=== PATIENT | female | born 1965 | race Hispanic/Latino ===

== ENCOUNTER 2016-11-14 09:38 | Day surgery (SDC) | payer OTHER ==
[2016-11-14] VITALS (11 sets, daily range): BP systolic 116–144; BP diastolic 61–82; PULSE 66–82; RESP 8–16; O2SAT 93–100
[~2016-11-14] VITALS: Ht 160 cm; Wt 72.5 kg
[2016-11-14] MEDS: Lactated Ringer's 1,000 ML IV SCH ×4 (05:33→14:03)
--- NOTE | 2016-11-14 06:44 | PCM.HPANE ---
Patient Data Surgeon Admitting Provider: Attending Provider:Jeyson King MD Primary Care Physician:Anila Brown MD Other Provider:Eda Cardosoingham Anesthesia Reason for Visit Right Breast Cancer Ht/WT & BMI Height (Feet): 5 Height (Inches): 2 Weight (Kilograms): 75.75 Body Mass Index 30.00 Allergies Coded Allergies: acetaminophen (Verified Allergy, Mild, RASH, 11/12/16) Medications Reported Medications Cholecalciferol (Vitamin D3) (Vitamin D3)1,000 Unit Tab.chew1,000 Unit PO DAILY 11/12/16 Alprazolam (Xanax)0.25 Mg Tablet0.25 Mg PO DIRECTED PRN For Anxiety Ref 0 10/10/16 Omeprazole 20 Mg Capsule.dr20 Mg PO DAILY Ref 0 10/10/16 Naproxen 250 Mg Fxrxeh288 Mg PO DIRECTED PRN For Pain Ref 0 10/10/16 History History of ENT Problems?: No Hx of Heart Problems?: No Hx of Respiratory Problem?: No Hx Neurologic Problems?: Yes Neurological History: Positive for:: Headaches Hx of GI Problems?: Yes Gastrointestinal History: Positive for:: Gastroesphageal Reflux Other GI Pertinent History: CONSTIPATION Female Hx: Positive for:: Pelvic Inflammatory (ATROPIHIC VAGINITIS) Problems with Breasts? Skin History: Denies:: History Skin Disorders? Pressure Ulcers Hx Musculoskeletal Problems?: Yes Musculoskeletal History: Positive for:: Back Injury (NECK STRAIN, LOW BACK STRAIN, MUSCLE SPASMS IN NECK) Musculoskeletal Trauma (R ROTATOR CUFF TEAR, PLANTAR FASCIITIS OF R FOOT, R RIB CONTUSION) Hx of Psycho/Social Problems?: No Hx Surgeries?: Yes (TUBAL) Hx Any Other Health Problems?: Yes Other History: Positive for:: Cancer (RIGHT BREAST) Hx Alcohol Use: No Stop/Bang S-Snoring: Do You Snore Loudly: No T-Tired: feel tired, fatigued: No O-Obsered: Observed not breath: No P-Blood Pressure: treated: No B- Body Mass Index > 35 kg/m2: No A- Age over 50: Yes N- Neck Large Circumference: No G- Gender Male: No MICKEY Total Score: 1 MICKEY Risk Assessment: Low Risk, <3 Yes Risk Assessment Category Category 1A: Patient has history of documented sleep apnea, and HAS NOT received any narcotic, sedative or anesthesia administration during this stay. Category 1B: Patient has history of documented sleep apnea, and HAS received any narcotic , sedative or anesthesia administration during this stay Category 2: Patient has SUSPECTED Obstructive Sleep Apnea, and HAS received any narcotic , sedative or anesthesia administration during this stay. Category 3: Patient has SUSPECTED Obstructive Sleep Apnea and HAS NOT received narcotic, sedative or anesthesia administration during this stay. Category 4: Outpatient in Procedural Areas with known sleep apnea or who screen positive for High Risk via the STOP/BANG questionnaire. Exam Exam General Appearance: Alert, Oriented X3, Cooperative, No Acute Distress HEENT/AIRWAY: MP 2 Lungs: Clear to Auscultation, Normal Air Movement Heart: Exam Unremarkable, Regular Rate/Rhythm, No Murmurs/Rubs/Gallops Meds/Labs/Diagnostics Admission Meds Current Medications Lactated Ringer's (Lr) 1,000 ml @ 120 mls/hr Q8H20M IV Last administered on t 05:33; Start 11/14/16 at 05:00; Stop 11/14/16 at 13:19 Plan Impression Patient chart reviewed, patient interviewed and anesthestic plan with risks, benefits, and alternatives discussed, and informed consent obtained. ASA Physical Status: ASA2 Mod Systemic Disease Anesthetic Plan: GA Bene/Risks/Altern/Consents: Yes HP Complete Prior to Induction: Yes Devante Abarca MD Nov 14, 2016 06:44
[~2016-11-14 09:38] MED LIST: ALPR0.25 PO; CHOL10008 PO; CeFAZolin Inj 2 GM in IV Premix 1 EACH IV SCH; NAPR250T PO; OMEP20CA11 PO
[2016-11-14] MEDS ORDERED: Propofol 10,000 mCg/mL 20 mL Inj ONE (09:39)
[2016-11-14] MEDS ORDERED: Ondansetron 2 mg/mL 2 mL Inj ONE (09:39)
[2016-11-14] MEDS ORDERED: Dexamethasone 4 mg/mL Inj ONE (09:39)
[2016-11-14] MEDS ORDERED: fentaNYL-PF 50 mCg/mL 2 mL Inj ONE (09:39)
[2016-11-14] MEDS ORDERED: Bupivacaine-MPF 0.5% W/EPI 30 mL Inj INFILTRATE ONE (12:01)
[2016-11-14] MEDS ORDERED: Lactated Ringer's 500 ML IV PRN (12:06)
[2016-11-14] MEDS ORDERED: Lactated Ringer's 1,000 ML IV SCH (12:06)
[2016-11-14] MEDS ORDERED: Dexamethasone 4 mg/mL Inj IVPUSH PRN (12:10)
[2016-11-14] MEDS ORDERED: MetoCLOpramide 5 mg/mL 2 mL Inj IVPUSH PRN (12:10)
[2016-11-14] MEDS ORDERED: EPHEDrine Sulfate 50 mg/mL Inj IVPUSH PRN (12:10)
[2016-11-14] MEDS ORDERED: Ondansetron 2 mg/mL 2 mL Inj IVPUSH PRN (12:10)
[2016-11-14] MEDS ORDERED: Phenylephrine 10,000 mCg/mL Inj IVPUSH PRN (12:10)
[2016-11-14] MEDS ORDERED: Labetalol 5 mg/mL 4 mL Inj IV PRN (12:10)
[2016-11-14] MEDS ORDERED: hydrALAZINE 20 mg/mL Inj IVPUSH PRN (12:10)
[2016-11-14] MEDS ORDERED: Atropine 0.4 mg/mL Inj IVPUSH PRN (12:10)
--- NOTE | 2016-11-14 12:41 | PCM.DISURG ---
Surgical Discharge Instruction Date of Service Nov 14, 2016 Dates of Hospitalization Date of Hospital Admission Providers Admitting Physician: Primary Care Physician: Anila Brown MD Attending Physician: Jeyson King MD Discharge Diagnosis Discharge Diagnosis Right breast cancer Diet Discharge Diet: No restrictions Activity Discharge Activity-General: Activity as pain allows Dressing and Incisional Care Dressing Instructions: Dermabond will peel off gradually Hygiene: May shower Follow Up Plan Follow Up Plan In the general surgery [place] postoperative clinic in 2 weeks. You will receive a call from Dr. King when pathology results are available. Call your provider for: Fever (over 101.5), Discharge @ incision, pus discharge Jeyson King MD Nov 14, 2016 12:41
--- NOTE | 2016-11-14 12:49 | PCM.SURGOP ---
Surgical Operative Report Date of Service: Nov 14, 2016 Pre Operative Diagnosis Right breast cancer Post Operative Diagnosis Same Procedure: Wire localized right partial mastectomy, right axillary sentinel lymph node biopsy Surgeon and Interpreter And Translator: Surgeon: Jeyson King MD Assistants: Karely Cox PA-C Indication for Procedure 51-year-old woman who was found on screening mammogram to have a new 1.1 cm mass in the right breast 8 o'clock position. Ultrasound-guided biopsy was performed, which demonstrated invasive ductal carcinoma, weakly ER positive, FL negative, [id number]. 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 Breast MRI showed a bilobed lesion, with the larger area measuring 8 x 7 x 5 mm, the smaller area measuring 6 x 6 x 3 mm. There was no lymphadenopathy. After discussion of risks and benefits, she agreed to proceed with wire localized right partial mastectomy, right axillary sentinel lymph node biopsy. Findings: The radiotracer signal was somewhat weak, so methylene blue was used. There was a single sentinel node, which was blue, and had a discrete radiotracer signal, with an ex vivo gamma count of 17, compared to a background count of 1. Procedure Details Preoperatively, the patient underwent wire localization in the breast [facility]. She then underwent radiotracer injection by nuclear medicine. She was brought to the operating room where she underwent smooth induction of general anesthesia with an LMA. Assessment of the right axilla revealed a weak radiotracer signal, so methylene blue was injected. A total of 2 mL was injected in 0.5 mm aliquots into the subdermal tissue around the areolar border circumferentially. The breast was massaged for several minutes. The right breast was prepped and draped in wide sterile fashion. A procedural pause was performed according to the SCOAP checklist, and all were found to be in agreement. A transverse incision was made in the lower outer quadrant of the right breast. Skin flaps were raised superiorly and inferiorly. The wire, which was coming in from lateral to medial, was delivered into the wound. Using the wire as a guide, circumferential dissection was carried out with electrocautery. Right breast tissue was dissected free, and the wire was not encountered during dissection, although the tip was somewhat close to the medial aspect of the cavity. The tissue was oriented with suture, labeled as right breast tissue, and a specimen radiograph was obtained. This confirmed that the mammographic lesion had been successfully localized the clip. Meanwhile, a separate medial margin was obtained with electrocautery, oriented with suture, and sent for permanent pathology. The cavity was marked with hemoclips circumferentially. The breast parenchyma was closed using an interrupted 3-0 Vicryl suture. A curvilinear incision was made at the inferior border of the hairbearing skin of the right axilla. Dissection was carried down with electrocautery through the subcutaneous tissue until the axillary fascia was incised. Exploration of the right axilla using the gamma probe as a guide revealed an area of discrete radiotracer activity, although it was somewhat weak. Dissection down onto this area revealed blue lymphatic channels going to a small blue lymph node. This was dissected free using hemoclips and electrocautery. Ex vivo, it had radiotracer count of 17. The background radiotracer count in the right axilla was 1. That was sent for permanent pathology, labeled as right axillary sentinel lymph node. There were no other pathologic nodes by palpation, and no other blue channels could be appreciated. The axillary fascia was closed with a 3-0 Vicryl suture. Both skin incisions were closed using running 4-0 Vicryl subcuticular suture. Dermabond was applied to both incisions as a dressing. At the end of the case all needle and sponge counts were correct 2. The patient was awakened from anesthesia without difficulty, and taken to the recovery room in satisfactory condition, having tolerated the procedure well. Complications There were no periprocedural complications identified. Surgical Specimen Removed: Yes Specimen sent to Pathology: Yes Surgical Specimen description: Right breast tissue. Medial margin. Right axillary sentinel lymph node. Anesthetic Plan: GA Grafts, Implants: None Output, Estimated Blood Loss: 20 Blood Administration during forbes: No Drains: None Catheters: None copies to: Jonah Johnson MD; Carlos Perez MD; Anila Brown MD, Joshua D MD Nov 14, 2016 12:49
[2016-11-14] MEDS: fentaNYL-PF 50 mCg/mL 2 mL Inj IVPUSH PRN ×2 (13:10→13:17)
[2016-11-14] MEDS: HYDROmorphone 1 mg/mL Inj IVPUSH PRN ×2 (13:10→13:16)
--- NOTE | 2016-11-14 13:39 | PCM.ANEP1 ---
Post Anesthesia Phase 1 PACU Phase 1 Assessment Date of Service: Nov 14, 2016 Vital Signs Vital Signs Date Time Temp Pulse Resp B/P Pulse Ox O2 Delivery O2 Flow Rate FiO2 11/14/16 13:29 72 8 125/72 94 Room Air 11/14/16 13:15 36.2 75 12 131/75 98 Room Air 11/14/16 13:10 79 14 143/78 96 Room Air 11/14/16 13:05 77 8 144/77 96 Room Air 11/14/16 13:00 82 10 144/76 99 Simple Mask 8 11/14/16 12:55 36.2 82 10 139/77 100 Simple Mask 8 11/14/16 10:02 36.0 69 16 131/82 97 Room Air Anesthetic Administered: GA Level of Alertness: Awake, talking SMITH's with Equal Strength: Yes Pain: No Nausea or Vomiting: No Oxygen Delivery: Simple Mask Lungs: Clear to Auscultation, Normal Air Movement Devante Abarca MD Nov 14, 2016 13:39
--- NOTE | 2016-11-14 13:40 | PCM.ANEP2 ---
Post Anesthesia Evaluation ASA/CMS Post Anesthesia VS in Patient's Normal Range?: Yes Resp Stable; Airway Patent?: Yes CV Function & Hydration Stable: Yes Mental Status Recovered?: Yes Pain control Satisfactory?: Yes N/V Control Satisfactory?: Yes Devante Abarca MD Nov 14, 2016 13:40
--- NOTE | 2016-11-14 16:15 | DRSVH ---
PROCEDURE: NM SENTINEL NODE INJECTION ONLY, RIGHT BREAST RADIOPHARMACEUTICAL: 0.5 mCi Millipore filtered Tc-99m sulfur colloid. INDICATIONS: RIGHT BREAST CANCER PROCEDURE: The indications, alternatives, benefits, risks, and complications of the procedure were explained to the patient. Written informed consent was obtained and placed in the chart. The area around the nip ple was prepped and draped in a sterile fashion. Tc-99m sulfur colloid was injected in the outer edg e of the areola in the right breast. No image was obtained. IMPRESSION: Administration of radiotracer into the right breast periareolar region for intra-operati ve sentinel lymph node localization. Dictated by: Kamaljit Juarez M.D. on 11/14/2016 at 16:14 Approved by: Kamaljit Juarez M.D. on 11/14/2016 at 16:14
--- NOTE | 2016-11-17 07:40 | DRSVH ---
SPECIMEN RIGHT BREAST: 11/14/2016 CLINICAL: Breast specimen. Correlation is made to exams dated: 11/14/2016 localization, 11/14/2016 mammogram - [facility] , 10/24/2016 breast MRI - [facility], and 10/02/2016 [facility] specimen was imaged for the mass located in the right breast at 8 o'clock in the retroare olar region. IMPRESSION: SPECIMEN The imaged specimen includes the lesion, a biopsy clip, and the distal portion of the biopsy wire. This exam was interpreted at Station ID: [id number]. Carlos armendariz/:11/14/2016 14:41:55 copy to: RENETTA GARCIA Additional referring physicians: BRIANDA YOON, RENETTA CHINCHILLA
--- NOTE | 2016-11-19 09:33 | PATH ---
SURGICAL PATHOLOGY Attending Physician:Anupama Gallagher CASE STATUS: Signed Out PATIENT NAME: TADEO BERGERON PID: [id number] : 1965 DATE COLLECTED:11/14/2016 00:00 SPECIMEN: 1: Breast mass, oriented 2: Breast Margin 3: [place] Lymph Node CLINICAL HISTORY: RIGHT BREAST CANCER 1. RIGHT BREAST TISSUE-SHORT STITCH SUPERIOR LONG STITCH LATERAL 2. RIGHT BREAST MEDIAL MARGIN SHORT STITCH IS SUPERIOR LONG STITCH IS ANTERIOR 3. RIGHT AXILLARY SENTINEL LYMPH NODE FINAL DIAGNOSIS: 1. Right Breast Wire Localization Excisional Specimen: Invasive carcinoma of the breast (see CAP Case summary below). Procedure: Wire localization excision. Lymph node sampling sentinel lymph node. Specimen laterality: Right. Tumor site: Upper inner quadrant. Tumor size: 0.6 cm (invasive component). Histologic type: Infiltrating ductal carcinoma not otherwise specified. Histologic grade: [place] histologic score: 9/9. Glandular score: 3/3, nuclear pleomorphism: 3/3, mitotic rate: 3/3, overall grade: 3/3. Tumor focality: Three separate foci. Ductal carcinoma in situ: Not identified. Margins: Invasive carcinoma Superior: 0.3 cm. Inferior: 0.5 cm. Additional margins: Greater than 1 cm. Lymph nodes: Total number of lymph nodes examined: 1 Number of sentinel lymph nodes: 1 Lymph node involvement: Negative for tumor. Method of Evaluation of [place] Lymph Node: Multiple serial sections. Lymphvascular invasion: Positive. These foci are present 0.3 cm from the inferior margin and 0.3 cm from the lateral margin. Pathologic stage: Primary tumor: pT1b Lymph node: pN0(sn). Ancillary studies (biomarkers performed on previous biopsy, [id number]): Estrogen receptor: Weakly positive. Progesterone receptor: Negative. HER-2/tricia: Negative. (all by immunohistochemistry). ICD10 C50.21 GROSS DESCRIPTION: The specimens are received in formalin, labeled with the patient's name, and sublabeled as the following: (1) right breast tissue; (2) medial margin, ss= superior, long st= anterior, TIF 1215; (3) Rt. axillary [place] lymph node, @ 1230, TIF 1231. (1) The specimen consists of a piece of breast tissue (4.8 cm AP, 2.2 cm SI, 6.0 cm ML) with no overlying skin. The specimen is oriented with 2 black sutures (short-superior, long-lateral). A localization wire is present. The specimen is serially sectioned ML into 15 slices with the medial and lateral resection margins as slices #1 and #15 respectively. The breast tissue is fatty and contains a diamond-white and yellow solid firm irregular mass (1.7 x 1.4 x 1.1 cm) and a martins-white solid firm well-circumscribed round nodule (0.5 cm). The mass is within slices #8-#11 and is 1.0 cm from the anterior, 2.2 cm from the posterior, 0.2 cm from the superior, 0.5 cm from the inferior, 2.8 cm on the medial, and 1.4 cm from the lateral resection margins. The nodule is within slices #12-#14 and is 0.5 cm from the mass, 1.5 cm from the anterior, 1.5 cm from the posterior, 1.1 cm from the superior, 0.6 cm from the inferior, 5.1 cm from the medial, and 0.4 cm from the lateral resection margins. Slices #1-#7 contain focally fibrous and irregular firm areas. No other nodules, masses or lesions are identified. Ink code: purple-anterior; yellow-posterior; black-superior; large-inferior; green-medial; blue-lateral. Section code: (1A) medial resection margin, perpendicularly sectioned, entirely submitted; (1B-1C) slice #2, bisected and submitted AP, entirely submitted; (1D-1E) slice #3, bisected and submitted AP, entirely submitted; (1F-1G) slice #4, bisected and submitted AP, entirely submitted; (1H-1I) slice #5, bisected and submitted AP, entirely submitted; (1J-1K) slice #6, bisected and submitted AP, entirely submitted; (1L-1M) slice #7, bisected and submitted AP, entirely submitted; (1N) slice #8, bisected AP, anterior half submitted; (1O) slice #9, bisected AP, anterior half submitted; (1P-1Q) slice #10, bisected and submitted AP, entirely submitted; (1R) slice #11, bisected AP, anterior half submitted; (1S) slice #12, trisected AP, middle third submitted; (1T) slice #13, bisected AP, anterior half submitted; (1U) slice #14, bisected AP, anterior half submitted; (1V-1W) lateral resection margin, perpendicularly sectioned, entirely submitted. Note: The mass and nodule are entirely submitted. (2) The specimen consists of a piece of breast tissue (3.5 cm AP, 3.6 cm SI, 0.7 cm ML) with no overlying skin. The specimen is oriented with 2 black sutures (short-superior, long-anterior). No localization wire is present. The breast tissue is fatty and secretes milky fluid upon sectioning. No nodules, masses or lesions are identified. Please note that the following ink code is not per the usual code. Inked code: purple-anterior; orange-posterior; black-superior; yellow-inferior; blue-medial; green-lateral. Section code: (2A) superior resection margin, perpendicular resection; (2B-2E) breast tissue, serially sectioned and submitted SI; (2F) inferior resection margin, perpendicularly sectioned. Specimen entirely submitted. (3) The specimen consists of a blue stained lymph node (1.5 x 1.1 x 0.2 cm). Section code: (3A) one lymph node, serially sectioned. Specimen entirely submitted. Note: Approximate total fixation some in formalin for all specimens-57 hours and 30 minutes calculated using a collection date of November 14, 2016 with times in fixative of [id number]. 11/15/16 JM MICRO DESCRIPTION: Sections from part 1 are of an excisional specimen from the right breast. The grossly described mass is a poorly-differentiated infiltrating ductal carcinoma of high grade ([place] grade 3/3). Nuclear grade is high, mitotic rate is high, and tubular differentiation is absent. Grossly the mass measured up to 1.7 cm in maximum dimension; however, the bulk of this is inflammatory reaction secondary to the previous biopsy. The actual mass measures 0.6 cm in maximum dimension. It is present 0.3 cm from the inked superior margin and 0.5 cm from the inked inferior margin. The preoperative MRI suggested this mass was bilobed; however, the gross examination indicates that there are actually two separate masses. The second is a well-demarcated nodular mass measuring 0.5 cm in maximum dimension. The second mass is histologically similar to the previously described tumor. This mass is 1 cm from the superior margin. All other margins are widely free of tumor. A third microscopic focus of invasive carcinoma is histologically identified. This measures less than 0.1 cm in maximum dimension and is not close to any inked margin. There are also two foci of vascular invasion. This is confirmed by immunohistochemistry in that the tumor cells are seen within spaces that are lined by endothelial cells and lymphatic cells (positive for CD31 and D2-40). These foci of vascular invasion are present 0.3 cm from the inferior margin and 0.3 cm from the lateral margin. Sections from part 2 are from the re-excision of the medial margin. There is no evidence of malignancy or significant atypia. Sections from part 3 are from a right axillary lymph nodes. Multiple serial sections are prepared and these are all negative for malignancy. ICD-9 CODES: CPT CODES: 1: 39045, 77107, 01845, 05456, 16564 2: 86481 3: 17996 PROCEDURE/ADDENDA: Addendum SPI Addendum Diagnosis Test: Oncotype DX breast recurrence score Recurrence Score Result: 57 ER Score: 5.3 Negative DC Score: <3.2 Negative HER2 Score: <7.6 Negative Addendum Comment Please see [employer] report [id number] for complete details. Electronically Signed Out Yesenia Morrow MD Electronically Signed Out Martin Villalobos MD [facility] Pathology [facility] [address], [place] [address] Technical component performed at [facility], [facility] [address], [place], [address]
[2016-12-11] MEDS ORDERED: OXYC5TAB72 PO (16:06)
[2017-01-07] MEDS ORDERED: PROC-4 PO (10:24)
[2017-01-07] MEDS ORDERED: IBUP-1827 PO (10:24)
[2017-01-07] MEDS ORDERED: DXM4T PO (10:24)
[2017-01-07] MEDS ORDERED: LORA5TAB8 PO (10:24)
[2017-01-07] MEDS ORDERED: ONDA8TAB7 PO (10:24)
[2017-01-07] MEDS ORDERED: LORA10CA PO (10:24)
[2017-01-27] MEDS ORDERED: DIPH25CA6 PO (12:30)
[2017-01-30] MEDS ORDERED: METH4TAB12 PO (10:15)
== END 2016-11-14 23:59 | disposition home or self-care (01) ==
LOC: SAS 09:38
PROVIDERS: ATTEND Student in an Organized Health Care Education/Training Program
DX: C50.911 Malignant neoplasm of unspecified site of right female breast (principal); Z17.0 Estrogen receptor positive status [ER+]; K21.9 Gastro-esophageal reflux disease without esophagitis; G43.909 Migraine, unspecified, not intractable, without status migrainosus
CPT/HCPCS: 19301; 38525; 38792; 76098; A9541; J0690; J1100; J1170; J2175; J2250; J2405; J7120

== ENCOUNTER 2016-12-25 11:10 | Day surgery (SDC) | payer OTHER ==
[2016-12-25] VITALS (8 sets, daily range): BP systolic 120–141; BP diastolic 80–88; PULSE 76–103; RESP 12–22; O2SAT 96–100
[~2016-12-25] VITALS: Ht 158.8 cm; Wt 72.1 kg
[~2016-12-25 11:10] MED LIST changes: +CeFAZolin Inj 2 GM in IV Premix 1 EACH IV ONE; -CeFAZolin Inj 2 GM in IV Premix 1 EACH IV SCH; +Lactated Ringer's 1,000 ML IV SCH; -NAPR250T PO; +OXYC5TAB72 PO
[2016-12-25] MEDS ORDERED: MetoCLOpramide 5 mg/mL 2 mL Inj ONE (11:11)
[2016-12-25] MEDS ORDERED: Ondansetron 2 mg/mL 2 mL Inj ONE (11:11)
[2016-12-25] MEDS ORDERED: Propofol 10,000 mCg/mL 20 mL Inj ONE (11:11)
[2016-12-25] MEDS ORDERED: Ketamine 10 mg/mL 20 mL Inj ONE (11:11)
[2016-12-25] MEDS ORDERED: Lidocaine PF 1% 30 mL Inj ONE (11:11)
[2016-12-25] MEDS ORDERED: Lactated Ringer's 1,000 ML IV ONE (12:01)
[2016-12-25] MEDS ORDERED: CeFAZolin Inj 2 gm / 50mL D5W IV ONE (12:16)
[2016-12-25] MEDS ORDERED: Bupivacaine-MPF 0.25%/EPI 30 mL Inj INJ ONE (12:48)
[2016-12-25] MEDS ORDERED: Lidocaine PF 1% 30 mL Inj INFILTRATE ONE (12:49)
[2016-12-25] MEDS ORDERED: HepLOK Flush 100 unit/mL 5 mL Inj IVFLUSH ONE (12:50)
[2016-12-25] MEDS ORDERED: HYDROcodone-APAP 5-325 mg Tablet PO PRN (13:15)
--- NOTE | 2016-12-25 13:32 | OP ---
[address] [address] OPERATIVE REPORT PATIENT: TADEO BERGERON : 1965 MR#: [id number] ADMIT: 12/25/2016 JOB ID: [id number] DATE OF SURGERY: 12/25/2016 ANESTHESIA: MAC. PREOPERATIVE DIAGNOSIS(ES): Triple negative breast cancer. POSTOPERATIVE DIAGNOSIS(ES): Triple negative breast cancer. OPERATIVE PROCEDURE: Insertion of left subclavian vein Port-A-Cath using fluoroscopy with interpretation. SURGEON: Aung Daily MD. POULTRY AND FISH BUTCHER: Quinn Turner PA-C. COMPLICATIONS: None. ESTIMATED BLOOD LOSS: Minimal. CONDITION: Satisfactory. FINDINGS: A regular profile Port-A-Cath was inserted into the left subclavian vein without complication. INDICATIONS/SIGNIFICANT HISTORY: The patient is a 51-year-old female with a recent diagnosis of right-sided breast cancer, status post partial mastectomy and sentinel lymph node biopsy. Final pathology demonstrated triple negative hormonal receptor status and therefore, the plan is for chemotherapy. OPERATIVE TECHNIQUE: The patient was taken into the operating room and placed in a supine position. Light sedation was administered and perioperative antibiotics were given. The neck and chest prepped and draped in a standard surgical fashion. A procedure pause performed. The left subclavian vein was accessed using the first try with the finder needle and a wire inserted. The wire was seen on fluoroscopy coursing through the heart and into the inferior vena cava. I confirmed it was in the venous system. Local anesthetic was injected and a subcutaneous pocket created in the left anterior chest. The Port-A-Cath was secured in place using three 2-0 Prolene sutures. The catheter was tunneled up to the wire entry point and then inserted into the vein under fluoroscopic visualization using the Seldinger technique. Good final position was confirmed with fluoroscopy. The port aspirated and flushed nicely. This was locked with heparin. The skin was closed using 3-0 Vicryl deep dermals, followed by running 4-0 Monocryl. Dermabond was applied. The entire procedure was well tolerated without complication.
--- NOTE | 2016-12-25 14:42 | DRSVH ---
PROCEDURE: X-RAY CHEST ONE VIEW, PORTABLE ([id number]) INDICATIONS: POST POWERPORT PLACEMENT TECHNIQUE: One view of the chest was acquired. COMPARISON: None. FINDINGS: Surgical changes and devices: Left chest port present to project over the mid superior vena cava. Ri ght breast and axillary surgical clips. Lungs and pleura: No pleural effusions or pneumothorax. Lungs are clear. Mediastinum: Mediastinal contours appear normal. Heart size is normal. Bones and chest wall: No suspicious bony lesions. Overlying soft tissues appear unremarkable. IMPRESSION: Placement of left chest port. Dictated by: Oracio Peterson [facility] Interpreted: Pearl Flower MD on 12/25/2016 at 14:42 Transcribed by: LANDON on 12/25/2016 at 14:42 Approved by: Pearl Flower MD, PhD on 12/25/2016 at 16:59
--- NOTE | 2016-12-25 18:40 | PCM.HPANE ---
Patient Data Date of Service: Dec 25, 2016 Surgeon Admitting Provider: Attending Provider:Aung Daily MD Primary Care Physician:Anila Brown MD Other Provider:Jesse Cardoso Anesthesia Reason for Visit Invasive Ductal Carcinoma Right Breast Ht/WT & BMI Height (Feet): 5 Height (Inches): 2.5 Weight (Kilograms): 72.12 Body Mass Index 28.00 Allergies Coded Allergies: acetaminophen (Verified Allergy, Mild, RASH, 11/12/16) Past Anesthesia History Anesthesia History: Denies:: Anesthesia Reactions, Fam Anesthesia Reaction Diabetes History Hx Diabetes?: No MRSA MRSA: No Medications Hypertension Medication: No Home Meds Incl Beta Jo: No Reported Medications oxyCODONE 5 Mg Tablet5 Mg PO Q4H PRN For Pain Ref 0 12/11/16 Cholecalciferol (Vitamin D3) (Vitamin D3)1,000 Unit Tab.chew1,000 Unit PO DAILY 11/12/16 Alprazolam (Xanax)0.25 Mg Tablet0.25 Mg PO DIRECTED PRN For Anxiety Ref 0 10/10/16 Omeprazole 20 Mg Capsule.dr20 Mg PO DAILY Ref 0 10/10/16 History History of ENT Problems?: No Teeth Condition: Missing Teeth Hx of Heart Problems?: No Cardiovascular History: Denies:: Abdominal Aortic Aneurism Atrial Fibrillation Chest Pain Edema Hypertension Hx of Respiratory Problem?: No Respiratory History: Denies:: Asthma COPD Emphysema Oxygen Administration Pneumonia Tuberculosis Use of C-PAP Machine Use of Inhalers / NEBS Hx Neurologic Problems?: Yes Neurological History: Positive for:: Headaches Denies:: CVA Multiple Sclerosis Parkinson's Disease Seizures Other Neurological Pertinent: CHRONIC NECK PAIN Hx of GI Problems?: Yes Gastrointestinal History: Positive for:: Gastroesphageal Reflux Denies:: Gall Bladder Disease Heartburn Hepatitis Hiatal Hernia Liver Disease Hx of Problems?: No Genitourinary History: Denies:: Kidney Stones Urinary Tract Infection Female Hx: Positive for:: Problems with Breasts? (breast cancer, hx right partial mastectomy, LNB) Denies:: Currently (hx tubal) Pelvic Inflammatory Skin History: Denies:: History Skin Disorders? Pressure Ulcers Hx Musculoskeletal Problems?: Yes Musculoskeletal History: Positive for:: Back Injury (hx neck strain) Musculoskeletal Trauma (past hx rt RCR) Hx of Psycho/Social Problems?: No Psycho Social History: Denies:: Anxiety Hx Depression Hx Surgeries?: Yes (tubal, rt RCR, Rt partial mastectomy-LNB) Hx Any Other Health Problems?: Yes Other History: Positive for:: Cancer (rt breast) Denies:: Thyroid Disease Hx Diabetes: No Hx Alcohol Use: NoHx Substance Use: No Smoking Status: Never Smoker Have You Smoked inLast 12 mo: No Stop/Bang Treated for Sleep Apnea?: No Do You Have a CPAP Machine?: No S-Snoring: Do You Snore Loudly: No T-Tired: feel tired, fatigued: Yes O-Obsered: Observed not breath: No P-Blood Pressure: treated: No B- Body Mass Index > 35 kg/m2: No A- Age over 50: Yes N- Neck Large Circumference: No G- Gender Male: No MICKEY Total Score: 2 Risk Assessment Category Category 1A: Patient has history of documented sleep apnea, and HAS NOT received any narcotic, sedative or anesthesia administration during this stay. Category 1B: Patient has history of documented sleep apnea, and HAS received any narcotic , sedative or anesthesia administration during this stay Category 2: Patient has SUSPECTED Obstructive Sleep Apnea, and HAS received any narcotic , sedative or anesthesia administration during this stay. Category 3: Patient has SUSPECTED Obstructive Sleep Apnea and HAS NOT received narcotic, sedative or anesthesia administration during this stay. Category 4: Outpatient in Procedural Areas with known sleep apnea or who screen positive for High Risk via the STOP/BANG questionnaire. Exam Exam General Appearance: Alert, Oriented X3, Cooperative, No Acute Distress HEENT/AIRWAY: MP 2, Neck Movement (FROM), Mouth Opening (3), Other (TMD3) Lungs: Normal Air Movement Heart: Exam Unremarkable, Regular Rate/Rhythm, Normal S1, Normal S2, No Murmurs /Rubs/Gallops Plan Impression Patient chart reviewed, patient interviewed and anesthestic plan with risks, benefits, and alternatives discussed, and informed consent obtained. NPO Status: 11/13 at 2330 ASA Physical Status: ASA2 Mod Systemic Disease Anesthetic Plan: TIVA Bene/Risks/Altern/Consents: Yes HP Complete Prior to Induction: Yes Prabhjot Reyes MD Dec 25, 2016 11:37 Daniele Rodriguez MD Dec 25, 2016 18:39
--- NOTE | 2016-12-25 18:40 | PCM.ANEP1 ---
Post Anesthesia Phase 1 PACU Phase 1 Assessment Date of Service: Dec 25, 2016 Vital Signs Vital Signs Date Time Temp Pulse Resp B/P Pulse Ox O2 Delivery O2 Flow Rate FiO2 12/25/16 14:49 36.3 90 16 136/85 96 Room Air 12/25/16 13:55 36.5 98 16 135/83 96 Room Air 12/25/16 13:35 36.6 98 14 132/81 97 Room Air 12/25/16 13:30 101 17 133/84 98 Room Air 12/25/16 13:25 103 18 138/88 98 Room Air 12/25/16 13:20 98 22 141/87 98 Simple Mask 8 12/25/16 13:15 36.4 98 12 133/85 100 Simple Mask 8 12/25/16 11:53 36.6 76 14 120/80 96 Room Air Anesthetic Administered: TIVA Level of Alertness: Awake, talking SMITH's with Equal Strength: Yes Pain: No Pain Scale Score: 0 Nausea or Vomiting: No Oxygen Delivery: Simple Mask Lungs: Normal Air Movement Daniele Rodriguez MD Dec 25, 2016 18:40
--- NOTE | 2016-12-25 18:40 | PCM.ANEP2 ---
Post Anesthesia Evaluation ASA/CMS Post Anesthesia VS in Patient's Normal Range?: Yes Resp Stable; Airway Patent?: Yes CV Function & Hydration Stable: Yes Mental Status Recovered?: Yes Pain control Satisfactory?: Yes N/V Control Satisfactory?: Yes Daniele Rodriguez MD Dec 25, 2016 18:40
[2017-01-07] MEDS ORDERED: LORA5TAB8 PO (10:24)
[2017-01-07] MEDS ORDERED: PROC-4 PO (10:24)
[2017-01-07] MEDS ORDERED: LORA10CA PO (10:24)
[2017-01-07] MEDS ORDERED: IBUP-1827 PO (10:24)
[2017-01-07] MEDS ORDERED: DXM4T PO (10:24)
[2017-01-07] MEDS ORDERED: ONDA8TAB7 PO (10:24)
[2017-01-27] MEDS ORDERED: DIPH25CA6 PO (12:30)
[2017-01-30] MEDS ORDERED: METH4TAB12 PO (10:15)
== END 2016-12-25 23:59 | disposition home or self-care (01) ==
LOC: SAS 11:10
PROVIDERS: ATTEND General Practice
PROC: 05H633Z Insertion of Infusion Device into Left Subclavian Vein, Percutaneous Approach (ICD-10-PCS; 2016-12-25)
PROC: B5171ZA Fluoroscopy of Left Subclavian Vein using Low Osmolar Contrast, Guidance (ICD-10-PCS; 2016-12-25)
PROC: 0JH60XZ Insertion of Tunneled Vascular Access Device into Chest Subcutaneous Tissue and Fascia, Open Approach (ICD-10-PCS; principal; 2016-12-25 13:15)
DX: C50.911 Malignant neoplasm of unspecified site of right female breast (principal); Z17.1 Estrogen receptor negative status [ER-]; Z90.11 Acquired absence of right breast and nipple
CPT/HCPCS: 36561; 71010; 77001; C1788; J0690; J1642; J2250; J2405; J2765; J7120

== ENCOUNTER 2017-01-26 20:33 | Emergency (ER) | payer OTHER ==
[~2017-01-26] VITALS: Ht 160 cm; Wt 72.3 kg
[~2017-01-26 20:33] MED LIST changes: -CHOL10008 PO; -CeFAZolin Inj 2 GM in IV Premix 1 EACH IV ONE; +DXM4T PO; +IBUP-1827 PO; +LORA10CA PO; -Lactated Ringer's 1,000 ML IV SCH; +ONDA8TAB7 PO; +PROC-4 PO
[2017-01-26 20:36] VITALS: BP 122/92; PULSE 100; RESP 16; O2SAT 100
--- NOTE | 2017-01-26 20:54 | ED.REPORT ---
HPI-Allergic Reaction Date of Service Jan 26, 2017 ED Provider: Dr. Martin Naidu M.D. A 51 year old female with a medical history of GERD and breast cancer presents to the ED accompanied by her daughter with hives onset 1200 today, worsening around 2000 while resting. The hives are itchy and present on her neck, head, bilateral axilla, and groin. Associated symptoms include dysphagia and chest "burning" onset just prior to arrival. The patient also reports nausea and constipation. She denies fever, tongue swelling, or other symptoms. The patient started taking fiber supplements three days ago, most recently this morning. She denies other new medication or exposures and has never had similar symptoms in the past. The patient had her second round of chemotherapy (Taxotere and Cytoxan) one week ago. Nursing Notes Stated Complaint: HIVES, PROBLEMS BREATHING Chief Complaint: General Complaint Nursing Notes Reviewed: Yes Allergies: Coded Allergies: acetaminophen (Verified Allergy, Mild, RASH, 01/26/17) Scheduled Dexamethasone (Dexamethasone) 4 Mg Tablet 4 MG PO qam and 2dys post tx Dexamethasone (Dexamethasone) 4 Mg Tablet 4 MG PO BID Omeprazole (Omeprazole) 20 Mg Capsule.dr 20 MG PO DAILY Prochlorperazine Maleate (Compazine) 10 Mg Tablet 10 MG PO q6hrs prn Scheduled PRN Alprazolam (Xanax) 0.25 Mg Tablet 0.25 MG PO DIRECTED PRN PRN For Anxiety Ibuprofen (Ibuprofen) 600 Mg Tablet 600 MG PO prn PRN PRN For Pain Loratadine (Claritin) 10 Mg Capsule 10 MG PO DAILY PRN PRN prn Ondansetron ODT (Zofran ODT) 8 Mg Tablet 8 MG PO q8hrs prn PRN PRN For Nausea oxyCODONE (oxyCODONE) 5 Mg Tablet 5 MG PO Q4H PRN PRN For Pain General Time Seen by MD: 20:54 Chief Complaint Other (Hives) Hx Obtained From: Patient, Daughter Arrived By: Walk-in Onset Occurred: 5 - 8 hours ago (Worsening one hour ago) Symptom Duration: Since onset Progression Since Onset: Gradually worsening Location: : Chest: Head: Neck: Pelvis Quality: Itching Severity: Current: Moderate Severity: Maximum: Moderate Associated with: Reports: Difficulty swallowing, Itching localized, Nausea, Denies: Tongue swollen Pertinent Negative: Relieved by nothing Immunizations: Unknown Recent Healthcare: Recent doctor visit Similar Sx Previous: No Past Medical History Past Medical History Breast cancer currently treated with Taxotere and Cytoxan - as of 01/26/17 GERD Past Surgical History Right partial mastectomy Lymph node biopsy Tubal ligation Right rotator cuff repair Smoking History Never Smoker Social History Other Social History: Good social support Ambulatory Status Independent Review of Systems Review of Systems Note: + Dysphagia Constitutional: Denies: Fever Ears / Nose / Throat: Denies: Tongue swelling Respiratory: Denies: Non-productive cough, Shortness of breath GI: Reports: Constipation, Nausea, Denies: Vomiting Skin: Reports Itching (neck, head, bilateral axilla, and groin), Reports Rash ( Hives - neck, head, bilateral axilla, and groin) Complete sys rev & neg: except as marked. Cardiovascular: Reports: Chest pain ("Burning") Physical Exam Initial Vital Signs Vital Signs (First) Date Time Temp Pulse Resp B/P Pulse Ox O2 Delivery O2 Flow Rate FiO2 01/26/17 20:36 36.8 100 16 122/92 100 Room Air Initial VS: Reviewed Head / Eyes: Atraumatic, Normocephalic Neurologic: Alert, Oriented Psychiatric: Mood/affect normal, Behavior normal General/Constitutional: Awake, Alert Respiratory / Chest: Breath sounds NL, Breath sounds = bilat, No respiratory distress Port present in left upper chest - site appears normal Cardiovascular: Heart rate NL, Regular rhythm, Heart sounds NL, No gallop, No murmurs, No rubs Skin: Warm, Dry Rash / Lesion Notes: Scattered urticaria present on neck, anterior trunk, and groin - palms were spared Alopecia present ENT: Airway patent, Mucous membranes moist, Pharynx NL Voice normal Abdomen: Soft, Non-tender, BS normoactive Interpretation & Diagnostics Lab Results Interpretation Test 01/26/17 20:52 Hold Purple Top Tube Received (Received) Hold Blue Top Tube Received (Received) Hold [place] Top Tube Received (Received) Hold [place] Top Tube Received (Received) ECG Interpretation ECG Interpretation: Sinus tachycardia rate 100 Prolonged OK interval Time: 20:54 Interpreted by: ED physician Re-Eval/Medical Decision Med Decision/Clinical Course Urticaria, unclear cause. Only new med is a fiber supplement. No wheeze/GI or mucosal swelling to suggest anaphylaxis. Source of Hx: Old records Re-Evaluation/Progress : Time of Eval: 22:49 Patient Status: Condition improved Re-Evaluation/Progress Note: Patient is mildly improved after the Benadryl. Discussed with patient lab results, oncology consult, diagnosis, and plan for discharge. Follow-up and return to the ER instructions given. Patient agrees with plan for care and all questions were addressed. Consultation : Referral / Consult Name: Jonah Johnson MD Call Returned at: 21:37 [employer] Consultant: Agrees with eval, Agrees with plan Note: ONCOLOGY: Discussed patient's case in depth. Counseled Regarding: Diagnosis, Lab results, Need for follow-up, When/why to return to ED Discharge & Departure Primary Impression: Urticaria Disposition: Home Discharge Condition All VS Reviewed: Yes Condition: Improved Patient Instructions: Urticaria (ED) Additional Instructions: This rash is likely an allergic response to something. It may be a medication, soap or laundry detergent or other new or continuing exposure. Given that the only new medication identified is the fiber supplement we advise stopping that. May use diphenhydramine 25-50 mg every 6 hours as needed for itching and rash. Take dexamethasone 4 mg twice a day for 3 days, first dose given here. Return to emergency department for difficulty breathing, fevers, rapid increase in rash swelling in her lips or tongue. Follow up with oncology in one to 2 days. Referrals: Anila Brown MD (PCP) Jonah Johnson MD Attestation Portions of this note were transcribed by Starla Piedra. I, Dr. Naidu, personally performed the history, physical exam, and medical decision-making; I reviewed and confirmed the accuracy of the information in the transcribed note. Signed by: Marcella Ram, 01/26/2017, 23:20 copies to: Jonah Johnson MD; Anila Brown MD, Donald L MD Jan 26, 2017 20:54 STARLA PIEDRA Jan 26, 2017 21:27
[2017-01-26] MEDS ORDERED: DXM4T PO (22:55)
[2017-01-26 23:08] VITALS: BP 119/75; PULSE 106; RESP 20; O2SAT 98
[2017-01-27] MEDS ORDERED: DIPH25CA6 PO (12:30)
[2017-01-30] MEDS ORDERED: METH4TAB12 PO (10:15)
== END 2017-01-26 23:09 | disposition home or self-care (01) ==
LOC: SED 20:33
DX: L50.9 Urticaria, unspecified (principal); K21.9 Gastro-esophageal reflux disease without esophagitis; Z88.8 Allergy status to other drugs, medicaments and biological substances
CPT/HCPCS: 93005; 96374; 99284; J1200